=== PATIENT | male | born 1975 ===

== ENCOUNTER 2021-11-07 15:36 | Emergency (ER) | payer SELFPAY ==
[~2021-11-07] VITALS: Ht 167.6 cm; Wt 99.8 kg
[2021-11-07 18:01] LABS: Urine Bacteria FEW /hpf (None Seen); Urine Blood Negative /uL (Negative); Urine Specific Gravity 1.015 (1.001-1.035); Urine WBC 30 /hpf (0 - 3)
[2021-11-07 20:11] VITALS: BP 141/80
[2021-11-07] MEDS ORDERED: AZITHROMYCIN 250 MG TAB PO ONE (20:30)
[2021-11-07] MEDS ORDERED: cefTRIAXone SOD 1,000 MG VL IM ONE (20:30)
== END 2021-11-07 20:42 | disposition home or self-care (01) ==
LOC: ER 15:36
DX: N45.1 Epididymitis (principal); N43.3 Hydrocele, unspecified; N39.0 Urinary tract infection, site not specified; E66.9 Obesity, unspecified; Z68.35 Body mass index [BMI] 35.0-35.9, adult
CPT/HCPCS: 76870; 81001; 96372; 99284; J0696